=== PATIENT | male | born 1985 | race Caucasian/White ===

== ENCOUNTER 2020-04-11 18:27 | Emergency (ER) | payer OTHER ==
[~2020-04-11 18:27] MED LIST: AZITHROMYCIN250 MG PO; NAPROXEN500 MG PO
== END 2020-04-11 20:58 | disposition home or self-care (01) ==
LOC: FER 18:27
DX: S92.812A Other fracture of left foot, initial encounter for closed fracture (principal); Z98.890 Other specified postprocedural states; X58.XXXA Exposure to other specified factors, initial encounter
CPT/HCPCS: 73660

== ENCOUNTER 2020-07-07 12:57 | Emergency (ER) | payer OTHER ==
[2020-07-07 14:17] LABS: BILIRUBIN NEGATIVE (NEGATIVE); BLOOD NEGATIVE Ery/uL (NEGATIVE); CLARITY CLEAR (CLEAR); COLOR YELLOW (YELLOW); GLUCOSE (U) 1+ mg/dL (NORMAL); LEUKOCYTES NEGATIVE Leu/uL (NEGATIVE); NITRITE NEGATIVE (NEGATIVE); PROTEIN NEGATIVE (NEGATIVE); SPECIFIC GRAVITY >=1.030 (1.001-1.030); UROBILINOGEN 0.2 mg/dL (0.2-1.0); pH 5.5 (5.0-9.0)
[2020-07-07 14:17] LABS: BASOPHIL 0.4 % (0-2); EOSINOPHIL 0.9 % (0-5); HCT 49.6 % (42.0-52.0); HGB 17.2 g/dl (13.2-18.0); LYMPHOCYTE 17.3 % (15-48); MCH 30.9 pg (25.0-31.0); MCHC 34.7 g/dL (32.0-36.0); MCV 89.2 fL (78.0-100.0); MPV 9.5 fL (6.0-9.5); NRBC 0; PLT 277 K/uL (150-400); RBC 5.56 M/uL (4.70-6.00); WBC 11.3 K/uL (4.0-10.5)
[2020-07-07 14:32] LABS: ALBUMIN 3.7 g/dL (3.4-5.0); BILIRUBIN - TOTAL 0.6 mg/dL (0.2-1.0); BUN/CREAT RATIO (CALC) 12.9 RATIO; CREATININE 0.85 mg/dL (0.67-1.17); GLOBULIN (CALCULATION) 3.9 g/dL; POTASSIUM 3.8 mmol/L (3.5-5.1); TOTAL PROTEIN 7.6 g/dL (6.4-8.2)
[2020-07-07] MEDS ORDERED: NAPROXEN500 MG PO (15:07)
== END 2020-07-07 15:32 | disposition home or self-care (01) ==
LOC: FER 12:57
PROVIDERS: Emergency Medicine
DX: R07.81 Pleurodynia (principal); R10.9 Unspecified abdominal pain; F17.210 Nicotine dependence, cigarettes, uncomplicated; Z90.49 Acquired absence of other specified parts of digestive tract
CPT/HCPCS: 36415; 71101; 80053; 81003; 85025; 85379; J1885

== ENCOUNTER 2020-11-24 11:33 | Emergency (ER) | payer OTHER ==
[2020-11-24] MEDS ORDERED: ATROVENT HFA12.9 GM INH (12:18)
[2020-11-24] MEDS ORDERED: TESSALON PERLE100 M1 PO (12:18)
[2020-11-24] MEDS ORDERED: PROAIR HFA8.5 GM INH (12:18)
== END 2020-11-24 13:13 | disposition home or self-care (01) ==
LOC: FER 11:33
DX: R06.00 Dyspnea, unspecified (principal); R06.2 Wheezing; R05 Cough; R50.9 Fever, unspecified; F17.210 Nicotine dependence, cigarettes, uncomplicated; Z87.01 Personal history of pneumonia (recurrent)
CPT/HCPCS: 71045